=== PATIENT | female | born 1995 | race Caucasian/White ===

== ENCOUNTER 2023-02-21 23:39 | Emergency (ER) | payer SELFPAY ==
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
[2023-02-21 23:59] VITALS: BP 110/62; PULSE 79; RESP 18; TEMP 36.7; O2SAT 98
[2023-02-22 00:03] VITALS: BP 110/62; BP 136/84; PULSE 74; PULSE 82; RESP 17; RESP 18; TEMP 36.7; O2SAT 100; O2SAT 98; O2SAT 99; BMI 32.9
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
--- NOTE | 2023-02-22 00:29 | ECG_ITS ---
Test Reason : ABDOMINAL PAIN Blood Pressure : / mmHG Vent. Rate : 094 BPM Atrial Rate : 094 BPM P-R Int : 134 ms QRS Dur : 100 ms QT Int : 376 ms P-R-T Axes : 022 068 035 degrees QTc Int : 470 ms Normal sinus rhythm with sinus arrhythmia Incomplete right bundle branch block Borderline ECG No previous ECGs available Referred By: Brad Presley Electronically Signed By:YONI TREVINO MD
[2023-02-22 00:45] LABS: Basophils Percent Auto 0.2 % (0-2); Eosinophils Absolute Auto 0.2 X10*3/uL (0.0-0.4); Hematocrit 37.6 % (37.0-47.0); Hemoglobin 12.3 g/dl (12.0-16.0); Imm Gran Abs Auto 0.04 X10*3/uL (0.00-0.03); Imm Gran Pct Auto 0.3 % (0.0-0.4); Lymphocytes Absolute Auto 3.7 X10*3/uL (1.2-4.9); Lymphocytes Percent Auto 24.7 % (20-40); MANUAL DIFF FLAG NO; Mean Corpuscular HGB Conc 32.7 g/dl (31.0-35.0); Mean Corpuscular Hemoglobin 28.9 pg (27.0-33.0); Mean Corpuscular Volume 88.5 fL (80.0-98.0); Mean Platelet Volume 8.5 fL (9.4-12.3); Monocytes Absolute Auto 0.8 X10*3/uL (0.1-1.2); Monocytes Percent Auto 5.2 % (2-11); Neutrophils Absolute Auto 10.3 x10*3/uL (2.0-8.3); Neutrophils Percent Auto 68.6 % (45-73); Platelet Count 383 X10*3/uL (160-400); Red Blood Count 4.25 X10*6/uL (4.20-5.50); Red Cell Distribution Width 13.3 % (11.0-16.0); White Blood Count 14.9 X10*3/uL (4.8-10.8)
[2023-02-22 00:50] VITALS: RESP 12
[2023-02-22] MEDS: Morphine Sulfate 4 MG/ML CARTRIDGE IVPUSH ×2 (00:50→04:44)
[2023-02-22] MEDS: ondansetron HCL 4 MG/2 ML VIAL IVPUSH (00:50)
[2023-02-22] MEDS: 0.9 % Sodium Chloride 1,000 ML 125 ML IV (00:50)
[2023-02-22 00:52] LABS: INTERNATIONAL NORM RATIO 0.9 (0.9-1.1); Prothrombin Time 11.2 SEC (11.1-13.3)
[2023-02-22 00:54] LABS: Partial Thromboplastin Time 25.3 SEC (26.0-36.4)
[2023-02-22 01:01] LABS: Alanine Aminotransferase 44 U/L (0-31); Alkaline Phosphatase 72 U/L (39-117); Anion Gap 15 (12-20); Aspartate Amino Transferase 63 U/L (5-31); Bilirubin Total 0.1 mg/dL (0.0-1.0); Blood Urea Nitrogen 15 mg/dL (9-16); Calcium 9.1 mg/dL (8.4-10.2); Carbon Dioxide 22 mmol/L (22-29); Chloride 105 mmol/L (96-108); Creatinine Clr Calc Pharmacy 118.4; Estimated Glomerular Filt Rate > 60; Glucose Random 127 mg/dL (60-115); Lipase 14 U/L (8-78); Potassium 3.9 mmol/L (3.3-5.1); Sodium 138 mmol/L (135-145); Total Protein 7.5 g/dL (6.5-8.0)
[2023-02-22 01:02] LABS: COVID-19 Test Negative (Negative); IDNOW Serial# BCCEAD1C
[2023-02-22 01:09] LABS: Troponin-I High Sensitivity < 2.7 ng/L (<3.5-17.0)
[2023-02-22] MEDS: iohexoL 350 MG/ML 100 ML INFUS..BTL 85 ML IV (01:40)
[2023-02-22 01:59] VITALS: BP 94/50; PULSE 86; RESP 17; TEMP 36.4; O2SAT 98
[2023-02-22 04:44] VITALS: RESP 16
[2023-02-22 05:21] VITALS: BP 123/61; PULSE 89; RESP 16; TEMP 36.8; O2SAT 97
== END 2023-02-22 05:23 | disposition home or self-care (01) ==
PROVIDERS: Emergency Provider Emergency Medicine Emergency Medical Services
DX: S20.211A Contusion of right front wall of thorax, initial encounter (principal); S30.1XXA Contusion of abdominal wall, initial encounter; S80.01XA Contusion of right knee, initial encounter; V43.62XA Car passenger injured in collision with other type car in traffic accident, initial encounter; F17.210 Nicotine dependence, cigarettes, uncomplicated; F12.90 Cannabis use, unspecified, uncomplicated; Z11.52 Encounter for screening for COVID-19; Y93.89 Activity, other specified; Y92.410 Unspecified street and highway as the place of occurrence of the external cause; Y99.9 Unspecified external cause status
CPT/HCPCS: 70450; 71260; 72125; 74177; 80053; 83690; 84484; 85025; 85610; 85730; 86850; 86900; 86901; 87635; 93005; 96374; 96375; 96376; 99284; 99285; J2270; J2405; Q9967